=== PATIENT | male | born 1990 | race African-American/Black ===

== ENCOUNTER 2025-06-28 10:12 | Emergency (ER) | payer MEDICAID, OTHER ==
[~2025-06-28] VITALS: Ht 172.7 cm; Wt 110.0 kg
[2025-06-28 10:31] VITALS: O2SAT 100
[2025-06-28] MEDS ORDERED: IBUP-2028 MT (10:49)
[2025-06-28] MEDS ORDERED: LIDO-53 TP (10:49)
[2025-06-28] MEDS: KETOROLAC 30MG/ML VIAL IM ONE (11:07)
[2025-06-28] MEDS: LIDOCAINE 5% PATCH TOP SCH (11:08)
[2025-06-28 11:17] VITALS: BP 124/53; PULSE 73; RESP 16; TEMP 36.7; O2SAT 100
== END 2025-06-28 11:19 | disposition home or self-care (01) ==
LOC: ER 10:12
DX: M54.50 Low back pain, unspecified (principal); Z98.890 Other specified postprocedural states
CPT/HCPCS: 96372; 99283; J1885; Z7610

== ENCOUNTER 2025-10-04 10:32 | Emergency (ER) | payer OTHER ==
[~2025-10-04] VITALS: Ht 175.3 cm; Wt 115.2 kg
[~2025-10-04 10:32] MED LIST: IBUP-2028 MT; LIDO-53 TP
[2025-10-04 10:49] VITALS: TEMP 36.8
[2025-10-04] MEDS: ONDANSETRON 4MG ODT PO ONE (12:17)
[2025-10-04] MEDS: KETOROLAC 30MG/ML VIAL IM ONE (12:17)
[2025-10-04 12:44] LABS: CLARITY URINE CLEAR (CLEAR); COLOR URINE YELLOW (YELLOW); GLUCOSE URINE NEGATIVE (NEGATIVE); KETONES URINE NEGATIVE (NEGATIVE); LEUKOCYTE ESTERASE URINE NEGATIVE (NEGATIVE); NITRITE URINE NEGATIVE (NEGATIVE); OCCULT BLOOD URINE TRACE (NEGATIVE); PH URINE 6.0 (4.5-8.0); PROTEIN URINE NEGATIVE (NEGATIVE); SPECIFIC GRAVITY URINE 1.024 (1.005-1.030); UROBILINOGEN URINE 1.0 E.U./dL (0.2-1.0)
[2025-10-04 12:50] LABS: BASOPHILS % 0.7 % (0.0-2.0); EOSINOPHILS % 6.2 % (0.0-5.0); HEMATOCRIT. 45.1 % (42.0-52.0); HEMOGLOBIN. 14.6 g/dL (14.0-18.0); LYMPHOCYTES % 30.4 % (20.0-50.0); MEAN PLATELET VOLUME 9.9 fl (7.4-10.4); MONOCYTES % 10.7 % (2.0-8.0); NEUTROPHILS % 52.0 % (40.0-76.0); PLATELET 171 x1000/uL (130-400); RED BLOOD CELL COUNT 5.35 mill/uL (4.7-6.1); RED CELL DISTRIBUTION WIDTH 14.3 % (11.6-14.6)
[2025-10-04 13:05] LABS: CREATININE 0.9 mg/dL (0.6-1.3); UREA NITROGEN BLOOD < 5 mg/dL (9-23)
[2025-10-04 13:16] VITALS: BP 110/70; PULSE 66; RESP 17; O2SAT 100
[2025-10-04] MEDS ORDERED: METH4TAB95 MT (13:16)
[2025-10-04 13:17] LABS: MUCUS URINE 3+ /lpf (NONE/TRACE)
[2025-10-04 13:19] LABS: SQUAMOUS EPITHELIAL CELL URINE FEW /lpf (RARE/1+)
[2025-10-04 13:20] LABS: BACTERIA URINE NONE SEEN; WBC URINE NONE SEEN /hpf (0-2)
== END 2025-10-04 13:34 | disposition home or self-care (01) ==
LOC: ER 10:32
DX: B34.9 Viral infection, unspecified (principal); Z98.890 Other specified postprocedural states
CPT/HCPCS: 99283; 80048; 81003; 85025; 36415; 96372; J1885; Q0162

== ENCOUNTER 2025-11-02 15:15 | Emergency (ER) | payer OTHER ==
[~2025-11-02] VITALS: Ht 177.8 cm; Wt 105.0 kg
[~2025-11-02 15:15] MED LIST changes: +METH4TAB95 MT
[2025-11-02 15:25] VITALS: O2SAT 99
[2025-11-02] MEDS: TETRACAINE 0.5% OPHTH DROPS 4ML BOTHEYE ONE (15:49)
[2025-11-02] MEDS: FLUORESCEIN SODIUM 1MG/STRIP BOTHEYE ONE (15:49)
[2025-11-02] MEDS ORDERED: OCUFLX RIGHTEYE (16:37)
[2025-11-02] MEDS ORDERED: IBUP-1455 MT (16:37)
[2025-11-02 16:42] VITALS: BP 118/80; PULSE 84; RESP 18; TEMP 36.8; O2SAT 99
[2025-11-02] MEDS ORDERED: AMOX1TAB16 MT (18:48)
== END 2025-11-02 16:45 | disposition home or self-care (01) ==
LOC: ER 15:15
DX: H57.11 Ocular pain, right eye (principal); R05.9 Cough, unspecified; J45.909 Unspecified asthma, uncomplicated; Z98.890 Other specified postprocedural states; Z79.899 Other long term (current) drug therapy
CPT/HCPCS: 71045; 99283

== ENCOUNTER 2025-11-23 07:56 | Emergency (ER) | payer OTHER ==
[~2025-11-23] VITALS: Ht 175.3 cm; Wt 114.0 kg
[~2025-11-23 07:56] MED LIST changes: +AMOX1TAB16 MT; +IBUP-1455 MT; +OCUFLX RIGHTEYE
[2025-11-23 10:26] VITALS: BP 111/71; PULSE 85; RESP 15; TEMP 36.7; O2SAT 100
[2025-11-23] MEDS: ACETAMINOPHEN 500MG TABLET PO ONE (10:26)
== END 2025-11-23 10:27 | disposition home or self-care (01) ==
LOC: ER 07:56
DX: B34.9 Viral infection, unspecified (principal); J02.9 Acute pharyngitis, unspecified; J45.909 Unspecified asthma, uncomplicated; Z55.6 Problems related to health literacy
CPT/HCPCS: 99282